=== PATIENT | female | born 1965 | race Caucasian/White ===

== ENCOUNTER 2016-05-10 20:58 | Emergency (ER) | payer BC ==
[~2016-05-10] VITALS: Ht 160 cm; Wt 72.0 kg
--- NOTE | 2016-05-10 22:05 | PD ---
HPI Chief Complaint: Injury Time Seen by Provider: 22:03 Travel History International Travel<30 days: No Contact w/Intl Traveler<30days: No History of Present Illness HPI Patient comes in for evaluation of left knee pain status post fall at a restaurant. Patient reports that her right leg went backwards in her left leg went forward causing her to land on and possibly twisting her left knee. Denies any loss of consciousness or head trauma. Patient complains of pain anterior aspect of left knee is worse to palpation. Denies anything for this prior to arrival. Denies any numbness or tingling or loss of bowel or bladder. Patient also complaining of right-sided low back pain without radiation that began after the fall. Please note H&P is obtained with the assistance of patient's friend interpreting for her. Patient was offered use of the [employer] [facility] interpreting service [facility]ika, however patient refused this and is comfortable letting her friend interpreting for her. PFSH Past Medical History Medical History: Denies Significant Hx Social History Alcohol Use: No Tobacco Use: No Substance Use: No Allergies-Medications (Allergen,Severity, Reaction): Coded Allergies: Aspirin (Verified Allergy, Severe, Seizures, 05/10/16) Penicillin (Verified Allergy, Severe, Chest Pain, 05/10/16) Reported Meds & Prescriptions Reported Meds & Active Scripts Active Flexeril (Cyclobenzaprine HCl) 10 Mg Tab 10 Mg PO Q8HR PRN Naprosyn (Naproxen) 500 Mg Tab 500 Mg PO Q12HR PRN Review of Systems Except as stated in HPI: all other systems reviewed are Neg Physical Exam Narrative GENERAL: Well-developed, overly nourished, in no acute distress, and non-ill appearing. SKIN: Warm and dry. HEAD: Atraumatic. Normocephalic. EYES: Pupils equal and round. EOMI. No scleral icterus. No injection or drainage. ENT: No nasal bleeding or discharge. Mucous membranes pink and moist. NECK: Trachea midline. Supple. No nuclear rigidity. CARDIOVASCULAR: Dorsal pulses 2+, intact, and equal bilaterally. Capillary refill less than 2 seconds. RESPIRATORY: No accessory muscle use. No respiratory distress. MUSCULOSKELETAL: No obvious deformities. No clubbing. No cyanosis. No edema. Decreased range of motion left knee secondary to pain. Knee: Negative patellar apprehension, varus and valgus maneuvers, anterior draw test, and Irlanda test. Pulses equal BL distal to injury. Capillary refill less than 2 seconds distal to injury and equal BL. FROM distal to injury and equal BL. Strength distal to injury equal BL. NV intact distal to injury. Dorsal pulses equal BL. Patient reports tenderness to palpation anterior aspect left knee. No tenderness crepitus or midline lumbar spine. Patient reports tenderness to palpation right lateral lumbar muscles. Straight leg test negative bilaterally. NEUROLOGICAL: Awake and alert. No obvious cranial nerve deficits. Motor grossly within normal limits. Normal speech. PSYCHIATRIC: Appropriate mood and affect; insight and judgment normal. Data Data Last Documented VS Vital Signs Date Time Temp Pulse Resp B/P Pulse Ox O2 Delivery O2 Flow Rate FiO2 05/10/16 22:19 98.3 87 16 130/81 98 Room Air Orders Knee, Complete (4vws) (05/10/16 ) Ice/Cold Pack (05/10/16 22:02) Spine, Lumbar - Ltd (Ap & Lat) (05/10/16 ) Naproxen (Naprosyn) (05/10/16 22:15) Cyclobenzaprine (Flexeril) (05/10/16 22:15) Splint Or Brace Apply/Monitor (05/10/16 23:14) Immobilizer Knee 20 Inch (05/11/16 ) MDM Medical Decision Making Medical Screen Exam Complete: Yes Emergency Medical Condition: Yes Differential Diagnosis Fracture, sprain, contusion, other Narrative Course There is no clinical evidence to suspect bony injury by exam. Radiographic examination revealed no fracture seen at this time. No obvious ligamental injury or obvious internal derangement is noted at this time. The anterior, posterior, lateral and medial collateral ligaments are intact and symmetrical. The distal extremity appears neurovascularly intact, without evidence of neurovascular injury nor compartment syndrome. Tendon exam also was intact. The effected limb was immobilized. The patient was discharged on pain medication along with sprain and splint care instructions and given warnings for vascular compromise. The patient is to follow up with Orthopedics. The patient agrees with plan. Patient presents with apparent back strain. The patient presented complaining of back pain. There was history of preceding trauma. X-rays were obtained and no obvious fracture or acute disease was noted at this time. The patient has no neurological complaints. The patient has been behaving normally and no notable altered mental status. Jacumba score of 15. The patients neurological exam is normal with normal motor and sensory. There is no saddle paresthesias reported and no bowel or bladder incontinence or retention. . The patients evaluation was consistent with soft tissue injury and not consistent with bony injury. Clinical suspicion, plan of care and management was discussed with the patient. The patient was instructed to follow up with their health care provider. The patient was also instructed to return if the pain worsened, changed, or developed weakness or bowel or bladder trouble. The patient agreed with plan. There was no evidence to support genitourinary etiology. There is also no evidence to suggest vascular pathology such as AAA dissection. No fevers or other evidence to suspect infectious processes, abscess etc. Patient in no obvious distress upon re-evaluation. All pertinent Radiology result(s) discussed with patient. Patient was asked if they wanted to speak to my attending, which the patient did not wish to do at this time. Any questions/ concerns in reference to patient diagnosis/condition discussed and clarified prior to patient's discharge. Reinforced sheer importance of close follow up with patient's primary physician or primary care clinic. Instructed patient to return to ED immediately, if symptoms return/worsen. Pt showed understanding of above instructions. Further instructions and recommendations were detailed in discharge paperwork. Pt ambulated without difficulty out of ED at discharge with knee immobilizer and crutches. Diagnosis Primary Impression: Left knee sprain Qualified Code: S83.92XA - Sprain of left knee, unspecified ligament, initial encounter Additional Impressions: Low back strain Qualified Code: S39.012A - Low back strain, initial encounter Fall Qualified Code: W19.XXXA - Fall, initial encounter Referrals: Yao Pratt MD Patient Instructions: Crutch Instructions (ED), Fall Prevention (ED), General Instructions, Knee Immobilizer (ED), Knee Sprain (ED), Low Back Strain (ED) Additional Instructions: Follow-up with your primary care physician and/or orthopedics in 3-5 days for reevaluation. Take all medication as prescribed. Apply ice to affected area 20 minutes per hour as needed for pain. Return to the emergency department if symptoms get worse. Med/Other Pt SpecificInfo: Prescription(s) given Scripts Cyclobenzaprine (Flexeril)10 Mg Tab10 Mg PO Q8HR PRN (MUSCLE PAIN) #15 TAB Ref 0 Prov:Deuce Teague MD 05/10/16 Naproxen (Naprosyn)500 Mg Niy231 Mg PO Q12HR PRN (PAIN SCALE 1 TO 10) #14 TAB Ref 0 Prov:Deuce Teague MD 05/10/16 Disposition: 01 DISCHARGE HOME Condition: Stable Eliud Jackson May 10, 2016 22:05
[2016-05-10] MEDS ORDERED: NAPROXEN 500 MG TAB PO ONE (22:15)
[2016-05-10] MEDS ORDERED: CYCLOBENZAPRINE HCL 10 MG TAB PO ONE (22:15)
[2016-05-10 22:19] VITALS: BP 130/81; PULSE 87; RESP 16; TEMP 98.3; O2SAT 98
--- NOTE | 2016-05-10 22:28 | RADRPT ---
EXAM DATE/TIME: 05/10/2016 22:01 [facility] COMPARISON: No previous studies available for comparison. INDICATIONS : Left knee pain with abrasion to the patella region post fall. MEDICAL HISTORY : None. SURGICAL HISTORY : None. ENCOUNTER: Initial ACUITY: 1 day PAIN SCORE: 8/10 LOCATION: Left knee FINDINGS: Four view examination of the left knee demonstrates no evidence of fracture or dislocation. Bony min eralization is normal. The articular surfaces are intact. The suprapatellar soft tissues have a nor mal configuration. CONCLUSION: No acute disease. Duane May MD on May 10, 2016 at 22:26 Board Certified Radiologist. This report was verified electronically.
--- NOTE | 2016-05-10 22:42 | RADRPT ---
EXAM DATE/TIME: 05/10/2016 22:25 [facility] COMPARISON: No previous studies available for comparison. INDICATIONS : Lower back pain post fall. MEDICAL HISTORY : None. SURGICAL HISTORY : None. ENCOUNTER: Subsequent ACUITY: 1 day PAIN SCORE: 7/10 LOCATION: Lumbar spine. FINDINGS: Two view examination was performed. There are five non-rib bearing vertebral bodies. The vertebral bodies are in normal alignment without evidence of subluxation or scoliosis. The disc spaces are amy ntained. The pedicles are intact. Bony mineralization is normal. No fracture is identified. Degene rative disc disease is noted at T8-9. CONCLUSION: No acute disease. Duane May MD on May 10, 2016 at 22:39 Board Certified Radiologist. This report was verified electronically.
[2016-05-10] MEDS ORDERED: CYCL1TAB29 PO (23:19)
[2016-05-10] MEDS ORDERED: NAPR500 PO (23:19)
== END 2016-05-10 23:50 | disposition home or self-care (01) ==
LOC: NEDAMB 20:58 → NEPB 23:50
DX: S83.92XA Sprain of unspecified site of left knee, initial encounter (principal); S39.012A Strain of muscle, fascia and tendon of lower back, initial encounter; W01.0XXA Fall on same level from slipping, tripping and stumbling without subsequent striking against object, initial encounter; Y93.01 Activity, walking, marching and hiking; Y92.511 Restaurant or cafe as the place of occurrence of the external cause
CPT/HCPCS: 72100; 73564; 99283; E0113; L1830